=== PATIENT | female | born 2000 ===

== ENCOUNTER 2025-02-24 07:23 | Inpatient (IN) ==
--- NOTE | 2025-02-24 09:37 | Obstetrical Progress Note ---
Date of Service February 24, 2025 Assessment & Plan (1) Encounter for induction of labor: Plan: Patient is a 24-year-old. At 37+ weeks here for induction of labor because of mild preeclampsia which was diagnosed at 28+ gestations. On arrival to labor and the patient has no shortness of breath no chills no fever no headache manage no change in vision. Blood pressure is 144/97. Patient is on labetalol twice daily and has not taken her blood pressure medications this morning. Bedside ultrasound shows cephalic presentation. No contractions. Vaginal exam 215-2. Assessment and plan admit Baseline admission labs Start Cytotec. Patient and partner about the patient need to ask questions about induction process. Anticipate Admission and Anticipated Discharge Date Admission Date: February 24, 2025 Results & Data Vital Signs (Past 12 Hours) Vital Signs Temp Pulse BP 02/24/25 07:41 36.5 C 02/24/25 07:33 131 H 144/97 H
[2025-02-24 10:00] LABS: Hematocrit (blood only) 33.1 % (37.0-47.0); Hemoglobin 11.2 g/dL (12.0-16.0); Mean Corpuscular Hemoglobin 27.9 pg (25.0-34.0); Mean Corpuscular Volume 82.5 fL (80.0-100.0); Platelet Count 216 K/uL (130-400); RDW Standard Deviation 38.1 fL (36.4-46.3); Red Blood Count 4.01 M/uL (4.20-5.40); White Blood Count 8.91 K/ul (4.8-10.8)
[2025-02-24] MEDS: LABETALOL HCL 100 MG TAB PO ONE (10:00)
[2025-02-24] MEDS: miSOPROStoL 50 MCG TAB PO SCH (10:00)
[2025-02-24] MEDS ORDERED: miSOPROStoL 50 MCG TAB PO SCH (12:00)
[2025-02-24 12:08] LABS: Alanine Aminotransferase 15.0 U/L (7-52); Albumin Globulin Ratio 1.0 (0.9-2); Albumin Level 2.9 gm/dl (3.4-5.0); Alkaline Phosphatase 172.0 U/L (34-104); Anion Gap 11.0 (3-11); Bilirubin,Total 0.3 mg/dl (0.2-1.0); Blood Urea Nitrogen 7.0 mg/dl (6-23); Calcium 8.9 mg/dl (8.6-10.3); Carbon Dioxide 20.0 mmol/L (21-32); Chloride 106.0 mmol/L (98-107); Creatinine Clr Calc Pharmacy 254.2 ml/min; Globulin 3.0 gm/dl (2.5-4.0); Glucose 84.0 mg/dl (70-99(Fasting)); Potassium 4.2 mmol/L (3.5-5.1); Sodium 137.0 mmol/L (136-145); Total Protein 5.9 gm/dl (6.0-8.3)
[2025-02-24 12:52] LABS: Protein Creatinine Ratio Urine 0.1 (0-0.2); Total Protein Urine Random 15.7 mg/dl (0-11.9)
[2025-02-24] MEDS: LACTATED RINGER'S 1,000 ML IV PRN (14:21)
[2025-02-24] MEDS: OXYTOCIN 30 UNITS/NSS 30 UNITS/500 ML BAG IV PRN (14:30)
--- NOTE | 2025-02-24 20:19 | Anesthesiology Consultation ---
Date of Service February 24, 2025 Assessment & Plan (1) Encounter for pre-operative examination: Chart Review Chart Review: Patient NOT seen in Pre Admission Testing and Acceptable Risk for Labor Epidural Consults Requested none History Height/Weight Height: 5 ft 9 in Weight: 128.82 kg Allergies Allergy/AdvReac Type Severity Reaction Status Date / Time No Known Allergies Allergy Verified 02/08/25 20:13 Medications Home Medications Medication Instructions Recorded Confirmed Last Taken labetalol 100 mg tablet 100 mg PO BID 12/21/24 02/24/25 02/23/25 vits no.124-ferrous fum 1 tab PO DAILY 12/21/24 02/24/25 02/24/25 27 mg iron-folic acid 800 mcg tablet ( Vitamin) Active Medications Generic Name Dose Route Start Last Admin Trade Name Freq PRN Reason Stop Dose Admin Lactated Ringer's 1,000 mls @ 125 mls/hr 02/24/25 09:29 02/24/25 20:02 Lr IV 02/26/25 09:28 999 mls/hr .Q8H PRN Infusion L&D Protocol Protocol Oxytocin 30 units in 500 mls @ 18 mls/hr 02/24/25 14:11 02/24/25 19:50 Pitocin 30 Units/Nss IV 02/26/25 14:10 1.08 units/hr .Q24H PRN 18 mls/hr Labor Induction/Augmentation Titration Protocol 1.08 UNITS/HR Past Medical History Medical History History of broken leg as a child SAB (spontaneous ) 01/2023 SAB (spontaneous ) 01/2020 Vaginal delivery 12/11/20 at 37 weeks Gestational hypertension Past Family History Family History Grandmother (Maternal) Stroke Mother Stroke Hypertension Grandfather (Maternal) Asthma Aunt Asthma Aunt No problems noted. Brother Autism Past Surgical History Surgical History H/O wisdom tooth extraction Social History Smoking Status: Never smoker Do You Dip or Chew Tobacco: No Hx Alcohol Use: No Hx Substance Use: No substance use type: does not use Physical Exam Vital Signs Last Vital Signs Temp 97.9 F 02/24/25 15:00 Pulse 68 02/24/25 19:08 Resp 18 02/24/25 18:00 BP 119/80 02/24/25 19:08 Testing Laboratory Results 02/24/25 09:39 02/24/25 09:39
[2025-02-24] MEDS ORDERED: NALBUPHINE HCL INJ 10 MG/ML AMP IV PRN (20:22)
[2025-02-24] MEDS ORDERED: NALOXONE HCL 0.4 MG/1 ML VIAL/CARP IV PRN (20:22)
[2025-02-24] MEDS ORDERED: BUPIVACAINE 0.25% PF 30 ML VIAL EPI PRN (20:22)
[2025-02-24] MEDS ORDERED: NALOXONE HCL 1 MG in SODIUM CHLORIDE 0.9% 1,000 ML IV PRN (20:22)
[2025-02-24] MEDS ORDERED: ROPIVACAINE 0.5% PF 5 MG/ML 20 ML VIAL EPI PRN (20:22)
[2025-02-24] MEDS ORDERED: LIDOCAINE 2% MPF LOCAL 5 ML VIAL EPI PRN (20:22)
[2025-02-24] MEDS ORDERED: SODIUM CHLORIDE 0.9% PF INJ 10 ML VIAL EPI PRN (20:22)
[2025-02-24] MEDS ORDERED: diphenhydrAMINE 50 MG/ML VIAL IV PRN (20:22)
[2025-02-24] MEDS ORDERED: fentANYL 2 MCG/ML BUPIVacaine 0.125%-NSS 100ML BAG EPI PRN (20:22)
[2025-02-24] MEDS: fentANYL 2 MCG/ML BUPIVacaine 0.125%-NSS 100ML BAG ONE (20:35)
[2025-02-24] MEDS: LIDOCAINE 2%/EPINEPHRINE 1:200,000 20 ML PF ONE (20:36)
[2025-02-24] MEDS: BUPIVACAINE 0.25% PF 30 ML VIAL ONE (20:37)
[2025-02-24] MEDS: SODIUM CHLORIDE 0.9% PF INJ 10 ML VIAL EPI STA (20:38)
[2025-02-24] MEDS: BUPIVACAINE 0.25% PF 30 ML VIAL EPI STA (20:39)
[2025-02-24] MEDS: SODIUM CHLORIDE 0.9% PF INJ 10 ML VIAL ONE (20:39)
[2025-02-24] MEDS: LIDOCAINE 2%/EPINEPHRINE 1:200,000 20 ML PF EPI STA (20:39)
--- NOTE | 2025-02-24 22:06 | Obstetrical Progress Note ---
Date of Service February 24, 2025 Assessment & Plan (1) Encounter for induction of labor: Plan: Pt doing well FHR; CAT1 Ctx : 2-3min VE; 3-4/50/-2 Pit ;18mu Epidural analgesia in place AROM with amnio hook- Clear fluid scalp placed without difficulty Admission and Anticipated Discharge Date Admission Date: February 24, 2025 Results & Data Vital Signs (Past 12 Hours) Vital Signs Temp Pulse Resp BP Pulse Ox 02/24/25 22:01 64 113/67 02/24/25 21:59 71 97 02/24/25 21:54 73 97 02/24/25 21:49 72 97 02/24/25 21:46 72 118/70 02/24/25 21:44 84 98 02/24/25 21:39 80 97 02/24/25 21:34 85 100 02/24/25 21:32 79 125/82 02/24/25 21:29 90 98 02/24/25 21:24 73 99 02/24/25 21:19 78 98 02/24/25 21:16 82 120/75 02/24/25 21:14 86 98 02/24/25 21:09 81 98 02/24/25 21:04 89 98 02/24/25 21:02 77 122/71 02/24/25 20:59 76 98 02/24/25 20:54 82 97 02/24/25 20:49 86 98 02/24/25 20:45 81 113/72 02/24/25 20:44 82 97 02/24/25 20:42 101 H 18 123/74 02/24/25 20:39 16 02/24/25 20:39 16 02/24/25 20:39 98 02/24/25 20:39 97 H 02/24/25 20:39 98 H 117/72 02/24/25 20:35 89 18 116/70 02/24/25 20:34 85 98 02/24/25 20:30 18 02/24/25 20:30 90 18 128/78 02/24/25 20:29 86 99 02/24/25 19:08 68 119/80 02/24/25 19:05 36.7 C 02/24/25 18:00 18 02/24/25 18:00 18 02/24/25 17:05 75 129/75 02/24/25 17:00 16 02/24/25 17:00 16 02/24/25 16:00 74 18 131/72 02/24/25 15:31 79 121/76 02/24/25 15:00 18 02/24/25 15:00 36.6 C 18 02/24/25 14:24 87 136/93 02/24/25 14:00 16 02/24/25 14:00 16 02/24/25 12:00 18 02/24/25 12:00 18 02/24/25 11:12 86 121/56 L 02/24/25 11:00 18 02/24/25 11:00 18
[2025-02-24] MEDS: LABETALOL HCL 100 MG TAB PO SCH (23:01)
[2025-02-25] MEDS: TERBUTALINE SULFATE 1 MG/ML VIAL SQ ONE (00:31)
[2025-02-25] MEDS: LIDOCAINE 1% LOCAL 20 ML VIAL INFIL PRN (01:16)
[2025-02-25] MEDS ORDERED: BENZOCAINE 20% SPRY 85 APPLN/85 GM CAN EXT PRN (01:26)
[2025-02-25] MEDS ORDERED: HYDROCORTISONE ACETATE 25 MG SUPP PR PRN (01:26)
[2025-02-25] MEDS ORDERED: OXYTOCIN 30 UNITS/NSS 30 UNITS/500 ML BAG IV PRN (01:26)
--- NOTE | 2025-02-25 01:29 | Delivery Summary ---
Vaginal Delivery Summary Date of Service February 25, 2025 Vaginal Delivery Summary DELIVERY NOTE Patient delivered a live female in left occiput anterior presentation there was one loose nuchal cord which was easily reduced. Infant was delivered and placed on mother's abdomen. Delayed cord clamping was performed. Cord blood is obtained Cord gasses are obtained Meconium is absent Placenta is spontaneously delivered. Placenta appears grossly normal and has 3 vessel cord Inspection of the perineum showed a second-degree midline laceration. Laceration is repaired in layers with 2-0 Vicryl in layers Rectal exam post repair showed good sphincter tone no sutures palpated in the rectum. Quantitative blood loss is 302ml Infants weight and scores are in the pediatric record Mother and baby are stable in in the recovery
[2025-02-25] MEDS: OXYTOCIN 30 UNITS/NSS 30 UNITS/500 ML BAG IV PRN (01:36)
[2025-02-25] MEDS: OXYTOCIN 10 UNITS/ML VIAL ONE (01:58)
[2025-02-25 02:00] LABS: Base Excess Cord Venous Blood -5.2 mEq/L (-7.7-1.9); Cord Venous Blood PO2 39 mmHg (14.1-43.3); O2 Saturation Cord Venous Bld 81.2 % (<68)
[2025-02-25 02:01] LABS: Base Excess Cord Arterial Bld -3.4 mEq/L (-9-1.8); CO2 Cord Arterial Blood 37 mmHg (39.1-73.5); HCO3 Cord Arterial Blood 21 mmol/L (19.7-28.5); Oxygen Sat Cord Arterial Blood 83.6 % (<60); PO2 Cord Arterial Blood 43 mmHg (4.1-31.7); pH Cord Arterial Blood 7.37 (7.1-7.38)
[2025-02-25 06:32] LABS: Alanine Aminotransferase 18.0 U/L (7-52); Albumin Globulin Ratio 1.0 (0.9-2); Albumin Level 2.8 gm/dl (3.4-5.0); Alkaline Phosphatase 143.0 U/L (34-104); Anion Gap 7.0 (3-11); Bilirubin,Total 0.3 mg/dl (0.2-1.0); Blood Urea Nitrogen 6.0 mg/dl (6-23); Calcium 8.4 mg/dl (8.6-10.3); Carbon Dioxide 24.0 mmol/L (21-32); Chloride 104.0 mmol/L (98-107); Creatinine Clr Calc Pharmacy 244.4 ml/min; Globulin 2.9 gm/dl (2.5-4.0); Potassium 3.8 mmol/L (3.5-5.1); Sodium 135.0 mmol/L (136-145); Total Protein 5.7 gm/dl (6.0-8.3)
[2025-02-25] MEDS: DOCUSATE SODIUM 100 MG CAP PO SCH (08:48)
[2025-02-25] MEDS: PRENATAL VITAMIN 1 TAB PO SCH (08:48)
--- NOTE | 2025-02-25 10:37 | Anesthesia Procedure Note ---
Date of Service February 25, 2025 Anesthesia Post Epidural Note Vital Signs Vital Signs: Temp Pulse Resp BP Pulse Ox O2 Del Method 36.8 C 89 18 124/77 97 Room Air 02/25/25 07:15 02/25/25 07:15 02/25/25 07:15 02/25/25 07:15 02/25/25 07:15 02/25/25 07:15 Pain Intensity Abdomen: Pain Intensity: 2 Perineal: Pain Intensity: 1 Notes Mental Status: alert / awake / arousable and participated in evaluation Nausea / Vomiting: adequately controlled Pain: adequately controlled Airway Patency, RR, SpO2: stable & adequate BP & HR: stable & adequate Hydration State: stable & adequate Neuraxial Anesthesia: was administered and sensory block is resolving Anesthetic Complications: no major complications apparent Epidural: Removed without complications and With tip intact
[2025-02-25] MEDS: ACETAMINOPHEN 325 MG TAB PO PRN (15:31)
[2025-02-25] MEDS: IBUPROFEN 600 MG TAB PO PRN (19:01)
[2025-02-25] MEDS: DIPHTHER/TETAN/PERTUS Vaccine (Tdap, Adol/Adult) 0.5mL IM ONE (23:55)
[2025-02-26 06:38] LABS: Hematocrit (blood only) 29.4 % (37.0-47.0); Hemoglobin 9.8 g/dL (12.0-16.0); Mean Corpuscular Hemoglobin 28.2 pg (25.0-34.0); Mean Corpuscular Volume 84.7 fL (80.0-100.0); Platelet Count 194 K/uL (130-400); RDW Standard Deviation 38.6 fL (36.4-46.3); Red Blood Count 3.47 M/uL (4.20-5.40); White Blood Count 10.83 K/ul (4.8-10.8)
[2025-02-26 09:36] VITALS: RESP 18
--- NOTE | 2025-02-26 11:44 | Obstetrical Progress Note ---
Date of Service February 26, 2025 Assessment & Plan (1) Normal course: Post day #2 Vaginal delivery Pt doing well No complaints Stable vitals Stable labs. H/H: 9.5/29.4 Tolerating PO food and med Pt wishes to be discharged home Results & Data Vital Signs (Past 12 Hours) Vital Signs Temp Pulse Resp BP Pulse Ox O2 Del Method 02/26/25 08:55 36.6 C 86 18 130/84 97 Room Air 02/26/25 00:55 36.6 C 72 16 109/74 97 Room Air
[2025-02-26 12:39] VITALS: BP 119/83; PULSE 90; TEMP 97.7; O2SAT 95
== END 2025-02-26 13:50 | disposition home or self-care (01) | DRG 807 ==
LOC: 4S1 07:23 → 4E2 02-25 03:45